=== PATIENT | male | born 1980 | race Caucasian/White ===

== ENCOUNTER → 2016-11-16 | Outpatient (CLI) | payer MEDICARE, OTHER ==
[~2016-11-16] MED LIST: ACULAR10 ML OD; ALPRAZOLAM PO; AMOXICILLIN875 MG PO; ATENOLOL PO; CLARITIN10 M3; FLONASE 0.05% N16 G1; I PRIN PO; LAMICTAL ODT100 MG PO; LAMICTAL PO; LAMICTAL100 MG PO; LATUDA20 MG; LEXAPRO PO; MINIPRESS5 MG; MINOCIN50 M1 PO; MULTI VITAMIN1 EACH PO; MULTI-DAY VITA1 EACH; POLYTRIM EYE DR10 ML OD; XANAX PO; XANAX0.5 MG PO; XANAX1 MG PO; ZOFRAN ODT4 MG/UDTAB SL; [UNRECOGNIZED DRUG - OTHER] PO
--- NOTE | ~2016-11-16 | EKG ---
PATIENT: DAVID DURAN UNIT #: [id number] Ventricular Rate: 78 BPM Atrial Rate: 78 BPM P-R Interval: 132 ms QRS Duration: 84 ms Q-T Interval: 360 ms QTC Calculation(Bezet): 410 ms P Windsor: 67 degrees Calculated R Windsor: 74 degrees Calculated T Windsor: 51 degrees Diagnosis Line: Normal sinus rhythm Diagnosis Line: Normal ECG Diagnosis Line: When compared with ECG of 17-JUL-2015 13:00, Diagnosis Line: T wave amplitude has increased in Anterior leads Diagnosis Line: Confirmed by NADINE LOYOLA MD ([id number]) on Diagnosis Line: 11/16/2016 9:36:30 PM INTERPRETING MD: MIGUEL
--- NOTE | ~2016-11-16 | CO ---
Unit #: [id number] #: [id number] Patient: DAVID DURAN [id number] [address] [place], [place] [address] [id number] O MR#: [id number] NAME: DAVID DURAN ROOM: Age: 35 Sex: M Admission Date: 11/16/2016 : 1980 Attending Physician: Moose Steinberg M.D. Primary Care Physician: No Primary Care Physician Consultation Date: 11/16/2016 CONSULTATION REPORT REASON FOR CONSULTATION Preoperative evaluation prior to ECT procedure scheduled by Dr. Moose Steinberg for 11/20/16. HISTORY OF PRESENT ILLNESS The patient is a 35-year-old male who presents to preprocedural screening for the reasons indicated above. He has no complaints at the time of this interview today. He denies chest pain, shortness of breath, arm, neck, jaw pain or pressure. He denies lightheadedness, dizziness, history of myocardial infarction and congestive heart failure, kidney disease or diabetes. He does have a history of paroxysmal atrial fibrillation and has intermittent palpitations but has undergone a stress test which he reports is normal. He states his palpitations are typically directly related to his level of anxiety. He denies homicidal and suicidal ideation at the time of this interview. He has been evaluated by Dr. Steinberg and scheduled for the above-referenced procedure. PAST MEDICAL HISTORY 1. Depression. 2. Bipolar disorder. 3. PTSD. 4. Anxiety. 5. History of suicide attempt. 6. History of traumatic brain injury x2 with spacial, cognitive and memory impairment. 7. Possible family history of malignant hyperthermia. 8. History of postoperative nausea and vomiting. 9. Latex allergy. 10. History of mitral valve prolapse, paroxysmal atrial fibrillation with palpitations, status post normal stress test. 11. Agoraphobia. 12. History of esophageal rupture. 13. History of thyroid nodule. 14. History of Meniere disease and history of vertigo. 15. Chronic neck and back pain. 16. Tuberculosis at [age] years of age. 17. HPV. PAST SURGICAL HISTORY 1. Tonsillectomy. 2. Esophageal rupture repair. 3. Hemorrhoidectomy. 4. Right fourth finger nerve/tendon repair. Unit #: [id number] #: [id number] Patient: DAVID DURAN 5. Hernia repair. ANESTHESIA Patient states that he and his mother both experience severe nausea and vomiting after general anesthesia. He also comments that his grandmother had very rigid muscles after surgery and is concerned regarding malignant hyperthermia. ALLERGIES 1. Latex allergy. Latex causes rash. 2. Codeine causes skin to crawl. 3. Seroquel causes him to feel like he is completely out of his head. CURRENT MEDICATIONS 1. Lamictal 100 mg p.o. b.i.d. 2. Xanax 1 mg p.o. t.i.d. p.r.n. anxiety. 3. Minipress 5 mg p.o. q.h.s. 4. Multivitamin one p.o. daily. 5. Claritin 10 mg p.o. daily. 6. Ibuprofen 400 mg p.o. q.4 h. p.r.n. headache. SOCIAL HISTORY Occasionally consumes alcohol and takes two tokes of marijuana every two weeks, denies tobacco use. FAMILY HISTORY Per review of Dr. Steinberg's office note he lives with his partner. REVIEW OF SYSTEMS A 10-point review of systems is conducted and otherwise negative except as indicated under history of present illness above. PHYSICAL EXAMINATION GENERAL: A 35-year-old male, awake, alert, in no acute distress. VITAL SIGNS: Temperature 97.3. Heart rate 88. Respiratory rate 16. Blood pressure 123/74. Oxygen saturation 99% on room air. HEENT: Normocephalic and atraumatic. Sclerae anicteric. No discharge from eyes, ears or nares. LYMPH: No preauricular, postauricular, tonsillar, submental anterior or posterior cervical adenopathy. ENDOCRINE: No thyromegaly, thyroid nodules or tenderness. RESPIRATORY: Clear to auscultation all cid bilaterally without wheezes, rhonchi or rales. CARDIOVASCULAR: S1 and S2, regular rate and rhythm, without murmur or rub. GI: Bowel sounds positive x4, soft, nontender, nondistended. EXTREMITIES: No edema, cyanosis or clubbing. MUSCULOSKELETAL: Strength 5/5 all extremities bilaterally with flexion and extension. NEUROLOGIC: Alert and oriented x3. Speech clear. Cranial nerves II-XII grossly intact. DIAGNOSTIC STUDIES LABORATORY: WBC 4.7, hemoglobin 15.0, hematocrit 44.9, platelet count 219,000. Sodium 138, potassium 4.1, chloride 104, CO2 25, glucose 102, BUN 14, creatinine 1.0, calcium 9.1, AST 20, ALT 21, alkaline phosphatase 55, total bilirubin 0.4, total protein 7.7, albumin 4.7. TSH 1.05. Unit #: [id number] #: [id number] Patient: DAVID DURAN Urinalysis negative. CARDIOVASCULAR: Twelve-lead EKG preliminary report: Normal sinus rhythm, normal EKG. Confirmed report pending at this time. IMPRESSION 1. The patient presents to preprocedural screening for medical evaluation prior to ECT on 11/20/2016. The patient's Stanley Revised Cardiac Risk Index is equal to 0.4%. This has been discussed in detail with the patient and he wishes to proceed with the ECT as scheduled at this time. 2. Depression/bipolar disorder, post traumatic stress disorder, anxiety. All medication and psychiatric management per Dr. Steinberg. 3. History of suicide attempt. 4. Traumatic brain injury with history of spacial, cognitive and memory impairment. 5. Possible family history of malignant hyperthermia. 6. Latex allergy. 7. History of mitral valve prolapse, paroxysmal atrial fibrillation, palpitations, status post normal stress test. 8. Agoraphobia. 9. History of esophageal rupture. 10. History or thyroid nodule. 11. History of Meniere disease with vertigo. 12. History of chronic neck and shoulder pain. 13. History of human papillomavirus. 14. History of tuberculosis at [age] years of age. Thank you for allowing us to participate in the care of this patient. Perioperative medication and other order management will be per Dr. Steinberg. Dictated by... Imelda Millard A.P.R.N. for Rika So/erna TD: 11/16/2016 17:51 JOB #: [id number] CONSULTATION REPORT Page 1 of 1 X Imelda Millard SKEIN TIER X CONSULTATION REPORT
[2016-11-16 10:43] LABS: HEMATOCRIT 44.9 % (38.0-50.0); MEAN CELL VOLUME 91.5 FL (83-96); MEAN CORPUSCULAR HEMOGLOBIN 30.6 PG (28-34); MEAN CORPUSCULAR HGB CONC 33.4 g/dL (30-36); MEAN PLATELET VOLUME 8.7 FL (6.5-11.5); RED BLOOD COUNT 4.91 X10e (3.90-5.60); RED CELL DISTRIBUTION WIDTH 13.9 % (11.0-15.5); URINE APPEARANCE CLEAR; URINE BILIRUBIN NEG (NEG); URINE BLOOD NEG (NEG); URINE COLOR DK YELLOW; URINE GLUCOSE NEG (NEG); URINE KETONE TRACE (NEG); URINE LEUKOCYTE ESTERASE NEG (NEG); URINE NITRATE NEG (NEG); URINE PROTEIN NEG (NEG); URINE SPECIFIC GRAVITY 1.028 (1.003-1.035); WHITE BLOOD COUNT 4.7 X10e3 (4.0-10.5)
[2016-11-16 11:06] LABS: ALBUMIN SERUM 4.7 g/dL (3.5-5.0); BILIRUBIN,TOTAL 0.4 mg/dL (0.2-2.0); CALCIUM SERUM 9.1 mg/dL (8.4-10.2); GLOM FILT RATE Estimated 97.8 mL/min (>60); POTASSIUM 4.1 mmol/L (3.5-5.1); PROTEIN TOTAL SERUM 7.7 g/dL (6.0-8.3)
== END | disposition home or self-care (01) ==
LOC: CAMB 10:13
PROVIDERS: Psychiatry & Neurology Psychiatry
DX: Z01.818 Encounter for other preprocedural examination (principal); F41.8 Other specified anxiety disorders; F31.9 Bipolar disorder, unspecified; F40.00 Agoraphobia, unspecified; Z91.040 Latex allergy status; Z86.11 Personal history of tuberculosis; Z87.820 Personal history of traumatic brain injury; Z87.19 Personal history of other diseases of the digestive system; Z86.39 Personal history of other endocrine, nutritional and metabolic disease; Z90.89 Acquired absence of other organs; Z98.890 Other specified postprocedural states; Z88.5 Allergy status to narcotic agent
CPT/HCPCS: 36415; 80053; 81003; 84443; 85027; 93005

== ENCOUNTER → 2016-11-20 | Day surgery (SDC) | payer MEDICARE, OTHER ==
--- NOTE | ~2016-11-20 | ECT ---
Unit #: [id number] #: [id number] Patient: DAVID DURAN [id number] [address] [address] [id number] O MR#: [id number] NAME: DAVID DURAN ROOM: Age: 35 Sex: M Admission Date: 11/20/2016 : 1980 Discharge Date: Attending Physician: Moose Steinberg M.D. Primary Care Physician: Primary Care Physician No ECT NOTE DATE OF TREATMENT 11/20/2016 TREATMENT NUMBER One. TREATMENT MODALITY Unilateral ECT ANESTHESIA Glycopyrrolate: 0.2 mg Brevital: 180 mg Succinylcholine: 120 mg TREATMENT PARAMETERS Charge: 72 millicoulombs Pulse Width: 1.0 milliseconds Frequency: 30 Hertz Duration: 1.5 seconds Current: 180 milliamps TREATMENT DELIVERED Energy: 11.3 joules Impedance: 194 ohms Charge: 72 millicoulombs SEIZURE MEASURES OMS: 37 seconds EE seconds COMPLICATIONS None. SUMMARY The patient had a good seizure with OMS and EEG measures. Depression has psychomotor retardation, poor focus and concentration, loss of interest in activities, poor sleep noted. No suicide or homicidal ideation. I will continue with ECT treatments on Sunday. DIFFERENTIAL DIAGNOSES AXIS I: F33.2. AXIS II: Deferred. Unit #: [id number] #: [id number] Patient: DAVID DURAN AXIS III: Nothing acute. Dictated by... Rika Fry/martinez TD: 11/20/2016 13:14 JOB #: [id number] ECT NOTE Page 1 of 1 X Moose Steinberg MD <ELECTRONICALLY SIGNED> 02/26/17 1207 X ECT
== END | disposition home or self-care (01) ==
LOC: CSUR 08:30
DX: F33.2 Major depressive disorder, recurrent severe without psychotic features (principal); I34.1 Nonrheumatic mitral (valve) prolapse; I47.1 Supraventricular tachycardia; Z90.89 Acquired absence of other organs; Z87.440 Personal history of urinary (tract) infections; Z88.6 Allergy status to analgesic agent; Z91.040 Latex allergy status; Z88.8 Allergy status to other drugs, medicaments and biological substances; Z79.899 Other long term (current) drug therapy
CPT/HCPCS: 90870; J0330; J1885; J2405

== ENCOUNTER → 2016-11-22 | Day surgery (SDC) | payer MEDICARE, OTHER ==
--- NOTE | ~2016-11-22 | ECT ---
Unit #: [id number] #: [id number] Patient: DAVID DURAN [id number] [place] [address] [id number] O MR#: [id number] NAME: DAVID DURAN ROOM: Age: 35 Sex: M Admission Date: 11/22/2016 : 1980 Discharge Date: Attending Physician: Moose Steinberg M.D. Primary Care Physician: Primary Care Physician No ECT NOTE DATE OF TREATMENT 11/22/2016 TREATMENT NUMBER 2 TREATMENT MODALITY Unilateral ECT. ANESTHESIA Glycopyrrolate: 0.2 mg. Brevital: 160 mg. Succinylcholine: 120 mg. TREATMENT PARAMETERS Charge: 288 millicoulombs Pulse Width: 1.0 milliseconds Frequency: 40 Hertz Duration: 4.5 seconds Current: 800 milliamps TREATMENT DELIVERED Energy: 45.2 joules Impedance: 190 ohms Charge: 288 millicoulombs SEIZURE MEASURES OMS: 79 seconds EE seconds COMPLICATIONS None. SUMMARY The patient had a good seizure with OMS and EEG measures on his second stimulus for his ECT treatment. He did have some muscle soreness and nausea from his first ECT. We have given him Toradol and some Zofran. We will just kind of watch and monitor those symptoms and treat as appropriate. He will be back on Sunday for his next ECT. DIFFERENTIAL DIAGNOSES AXIS I: F33.2 AXIS II: Deferred. Unit #: [id number] #: [id number] Patient: DAVID DURAN AXIS III: Nothing acute. Dictated by... Moose Steinberg M.D. JOON/leonela TD: 11/22/2016 12:01 JOB #: [id number] ECT NOTE Page 1 of 1 X Moose Steinberg MD <ELECTRONICALLY SIGNED> 02/26/17 1207 X ECT
== END | disposition home or self-care (01) ==
LOC: CSUR 08:36
DX: F33.2 Major depressive disorder, recurrent severe without psychotic features (principal); E04.1 Nontoxic single thyroid nodule; I34.1 Nonrheumatic mitral (valve) prolapse; I47.1 Supraventricular tachycardia; G47.30 Sleep apnea, unspecified; Z79.1 Long term (current) use of non-steroidal anti-inflammatories (NSAID); Z79.899 Other long term (current) drug therapy; M54.9 Dorsalgia, unspecified; M54.2 Cervicalgia; F41.9 Anxiety disorder, unspecified; H81.09 Meniere's disease, unspecified ear; Z87.898 Personal history of other specified conditions; Z87.440 Personal history of urinary (tract) infections; Z88.5 Allergy status to narcotic agent; Z88.8 Allergy status to other drugs, medicaments and biological substances; Z91.040 Latex allergy status
CPT/HCPCS: 90870; J1885; J2405

== ENCOUNTER → 2016-11-24 | Day surgery (SDC) | payer MEDICARE, OTHER ==
--- NOTE | ~2016-11-24 | ECT ---
Unit #: [id number] #: [id number] Patient: DAVID DURAN [id number] [place] [address] [id number] O MR#: [id number] NAME: DAVID DURAN ROOM: Age: 35 Sex: M Admission Date: 11/24/2016 : 1980 Discharge Date: Attending Physician: Moose Steinberg M.D. Primary Care Physician: Primary Care Physician No ECT NOTE DATE OF TREATMENT 11/24/2016 TREATMENT NUMBER 3 TREATMENT MODALITY Unilateral ECT. ANESTHESIA Glycopyrrolate: 0.2 mg. Brevital: 160 mg. Succinylcholine: 120 mg. TREATMENT PARAMETERS Charge: 288 millicoulombs Pulse Width: 1.0 milliseconds Frequency: 40 Hertz Duration: 4.5 seconds Current: 800 milliamps TREATMENT DELIVERED Energy: 44.3 joules Impedance: 186 ohms Charge: 288 millicoulombs SEIZURE MEASURES OMS: 45 seconds EE seconds COMPLICATIONS None. SUMMARY The patient had a good seizure with OMS and EEG measures. Depression seems to be getting a little bit better. We do still have some psychomotor retardation, poor focus and concentration, loss of interest in activities, subjective feeling of depression. I will continue his treatments on Sunday. DIFFERENTIAL DIAGNOSES AXIS I: F33.2. AXIS II: Deferred. Unit #: [id number] #: [id number] Patient: DAVID DURAN AXIS III: Nothing acute. Dictated by... Moose Steinberg M.D. JOON/leonela TD: 11/24/2016 11:27 JOB #: [id number] ECT NOTE Page 1 of 1 X Moose Steinberg MD <ELECTRONICALLY SIGNED> 02/26/17 1207 X ECT
== END | disposition home or self-care (01) ==
LOC: CSUR 07:44
DX: F33.2 Major depressive disorder, recurrent severe without psychotic features (principal); F41.9 Anxiety disorder, unspecified; Z87.440 Personal history of urinary (tract) infections; Z88.5 Allergy status to narcotic agent; Z88.8 Allergy status to other drugs, medicaments and biological substances; Z79.899 Other long term (current) drug therapy; Z91.040 Latex allergy status; Z98.890 Other specified postprocedural states
CPT/HCPCS: 90870; J0330; J1885; J2405

== ENCOUNTER → 2016-11-27 | Day surgery (SDC) | payer MEDICARE, OTHER ==
--- NOTE | ~2016-11-27 | ECT ---
Unit #: [id number] #: [id number] Patient: DAVID DURAN [id number] [address] [address] [id number] O MR#: [id number] NAME: DAVID DURAN ROOM: Age: 35 Sex: M Admission Date: 11/27/2016 : 1980 Discharge Date: Attending Physician: Moose Steinberg M.D. Primary Care Physician: Primary Care Physician No ECT NOTE DATE OF TREATMENT 11/27/2016 TREATMENT NUMBER 4 TREATMENT MODALITY Unilateral ECT. ANESTHESIA Glycopyrrolate: 0.2 mg. Brevital: 160 mg. Succinylcholine: 120 mg. TREATMENT PARAMETERS Charge: 288 millicoulombs Pulse Width: 1.0 milliseconds Frequency: 40 Hertz Duration: 4.5 seconds Current: 800 milliamps TREATMENT DELIVERED Energy: 41.7 joules Impedance: 177 ohms Charge: 288 millicoulombs SEIZURE MEASURES OMS: 31 seconds EE seconds COMPLICATIONS None. SUMMARY The patient had a good seizure with OMS and EEG measures. No real change noted over the weekend. He continues to have psychomotor retardation, poor focus, and concentration, loss of interest in activities, depressed mood. Overall no suicidal or homicidal ideation is noted. I will continue with ECT treatments on Sunday. DIFFERENTIAL DIAGNOSES AXIS I: F33.2 AXIS II: Deferred. Unit #: [id number] #: [id number] Patient: DAVID DURAN AXIS III: Nothing acute. Dictated by... Moose Steinberg M.D. JOON/leonela TD: 11/27/2016 15:01 JOB #: [id number] ECT NOTE Page 1 of 1 X Moose Steinberg MD <ELECTRONICALLY SIGNED> 02/26/17 1207 X ECT
== END | disposition home or self-care (01) ==
LOC: CSUR 07:16
DX: F33.2 Major depressive disorder, recurrent severe without psychotic features (principal); H81.09 Meniere's disease, unspecified ear; G47.30 Sleep apnea, unspecified; E04.1 Nontoxic single thyroid nodule; G89.29 Other chronic pain; M54.9 Dorsalgia, unspecified; M54.2 Cervicalgia; I34.1 Nonrheumatic mitral (valve) prolapse; I47.1 Supraventricular tachycardia; Z79.899 Other long term (current) drug therapy; F12.90 Cannabis use, unspecified, uncomplicated; Z87.440 Personal history of urinary (tract) infections; Z87.898 Personal history of other specified conditions; Z88.5 Allergy status to narcotic agent; Z88.8 Allergy status to other drugs, medicaments and biological substances; Z91.040 Latex allergy status
CPT/HCPCS: 90870; J0330; J1885; J2405

== ENCOUNTER → 2016-11-29 | Day surgery (SDC) | payer MEDICARE, OTHER ==
--- NOTE | ~2016-11-29 | ECT ---
Unit #: [id number] #: [id number] Patient: DAVID DURAN [id number] [place] [address] [id number] O MR#: [id number] NAME: DAVID DURAN ROOM: Age: 35 Sex: M Admission Date: 11/29/2016 : 1980 Discharge Date: Attending Physician: Moose Steinberg M.D. Primary Care Physician: Primary Care Physician No ECT NOTE DATE OF TREATMENT 11/29/2016 TREATMENT NUMBER Five TREATMENT MODALITY Unilateral ECT ANESTHESIA Glycopyrrolate: 0.2 mg Brevital: 160 mg Succinylcholine: 120 mg TREATMENT PARAMETERS Charge: 288 millicoulombs Pulse Width: 1.0 milliseconds Frequency: 40 Hertz Duration: 4.5 seconds Current: 800 milliamps TREATMENT DELIVERED Energy: 43.5 joules Impedance: 183 ohms Charge: 288 millicoulombs SEIZURE MEASURES OMS: 40 seconds EE seconds COMPLICATIONS None. SUMMARY The patient had a good seizure with both his OMS and EEG measures. Depression has not really changed much since we started her ECTs. He continues to have some psychomotor retardation, poor focus and concentration, loss of interest in activities. No suicidal or homicidal ideation is noted today and his affect is fluctuating rather wildly from day-to-day. I will continue his ECT treatments on Sunday. DIFFERENTIAL DIAGNOSES AXIS I: F33.2. Unit #: [id number] #: [id number] Patient: DAVID DURAN AXIS II: Deferred. AXIS III: Nothing acute. AXIS IV: AXIS V: Dictated by... Moose Steinberg M.D. JOON/kiana TD: 11/29/2016 09:50 JOB #: [id number] ECT NOTE Page 1 of 1 X Moose Steinberg MD <ELECTRONICALLY SIGNED> 02/26/17 1207 X ECT
== END | disposition home or self-care (01) ==
LOC: CSUR 07:10
DX: F33.2 Major depressive disorder, recurrent severe without psychotic features (principal); G89.29 Other chronic pain; M54.9 Dorsalgia, unspecified; M54.2 Cervicalgia; Z87.440 Personal history of urinary (tract) infections; Z87.19 Personal history of other diseases of the digestive system; Z88.5 Allergy status to narcotic agent; Z88.8 Allergy status to other drugs, medicaments and biological substances; Z91.040 Latex allergy status; Z79.1 Long term (current) use of non-steroidal anti-inflammatories (NSAID); Z79.899 Other long term (current) drug therapy; Z90.89 Acquired absence of other organs; Z98.890 Other specified postprocedural states
CPT/HCPCS: 90870; J1885; J2405

== ENCOUNTER → 2016-12-01 | Day surgery (SDC) | payer MEDICARE, OTHER ==
--- NOTE | ~2016-12-01 | ECT ---
Unit #: [id number] #: [id number] Patient: DAVID DURAN [id number] [place] [address] [id number] O MR#: [id number] NAME: DAVID DURAN ROOM: Age: 35 Sex: M Admission Date: 12/01/2016 : 1980 Discharge Date: Attending Physician: Moose Steinberg M.D. Primary Care Physician: Primary Care Physician No ECT NOTE DATE OF TREATMENT 12/01/2016 TREATMENT NUMBER 6 TREATMENT MODALITY Unilateral ECT. ANESTHESIA Glycopyrrolate: 0.2 mg. Brevital: 160 mg. Succinylcholine: 120 mg. TREATMENT PARAMETERS Charge: 400 millicoulombs Pulse Width: 1.0 milliseconds Frequency: 50 Hertz Duration: 5 seconds Current: 800 milliamps TREATMENT DELIVERED Energy: 61.8 joules Impedance: 185 ohms Charge: 400 millicoulombs SEIZURE MEASURES OMS: 70 seconds EE seconds COMPLICATIONS None. SUMMARY The patient had a good seizure with both OMS and EEG measures. Depression has really shown a lot of improvement since we started the ECT. He still has psychomotor retardation, poor focus and concentration, loss of interest in activities, decreased appetite, feeling of guilt. No suicidal or homicidal ideation has been noted. We will increase his ECT energies and continue him on his ECT treatment on Sunday. DIFFERENTIAL DIAGNOSES AXIS I: F33.2 Unit #: [id number] #: [id number] Patient: DAVID DURAN AXIS II: F60.9. AXIS III: Nothing acute. Dictated by... Moose Steinberg M.D. JOON/leonela TD: 12/01/2016 09:53 JOB #: [id number] ECT NOTE Page 1 of 1 X Moose Steinberg MD <ELECTRONICALLY SIGNED> 02/26/17 1207 X ECT
== END | disposition home or self-care (01) ==
LOC: CSUR 07:21
DX: F33.2 Major depressive disorder, recurrent severe without psychotic features (principal); F60.9 Personality disorder, unspecified; F41.9 Anxiety disorder, unspecified; H81.09 Meniere's disease, unspecified ear; E04.1 Nontoxic single thyroid nodule; I34.1 Nonrheumatic mitral (valve) prolapse; I47.1 Supraventricular tachycardia; G89.29 Other chronic pain; M54.9 Dorsalgia, unspecified; M54.2 Cervicalgia; Z79.899 Other long term (current) drug therapy; Z79.1 Long term (current) use of non-steroidal anti-inflammatories (NSAID); Z87.440 Personal history of urinary (tract) infections; Z88.5 Allergy status to narcotic agent; Z88.8 Allergy status to other drugs, medicaments and biological substances; Z91.040 Latex allergy status
CPT/HCPCS: 90870; J0330; J1885; J2405

== ENCOUNTER → 2016-12-04 | Day surgery (SDC) | payer MEDICARE, OTHER ==
--- NOTE | ~2016-12-04 | ECT ---
Unit #: [id number] #: [id number] Patient: DAVID DURAN [id number] [place] [address] [id number] O MR#: [id number] NAME: DAVID DURAN ROOM: Age: 35 Sex: M Admission Date: 12/04/2016 : 1980 Discharge Date: Attending Physician: Moose Steinberg M.D. Primary Care Physician: Primary Care Physician No ECT NOTE DATE OF TREATMENT 12/04/2016 TREATMENT NUMBER Seven TREATMENT MODALITY Unilateral ECT ANESTHESIA Glycopyrrolate: 0.2 mg Brevital: 160 mg Succinylcholine: 100 mg TREATMENT PARAMETERS Charge: 480 millicoulombs Pulse Width: 1.0 milliseconds Frequency: 50 Hertz Duration: 6 seconds Current: 800 milliamps TREATMENT DELIVERED Energy: 75.7 joules Impedance: 190 ohms Charge: 480 millicoulombs SEIZURE MEASURES OMS: 32 seconds EE seconds COMPLICATIONS None SUMMARY The patient had a good seizure with both OMS and EEG measures. Depression hasn't really shown a lot of change. I have increased his energy today for his seventh ECT treatment and we will just continue to watch and continue his ECTs. DIFFERENTIAL DIAGNOSES AXIS I: F33.2. AXIS II: F60.9. AXIS III: Nothing acute. Unit #: [id number] #: [id number] Patient: DAVID DURAN AXIS IV: AXIS V: Dictated by... Rika Fry/kiana TD: 12/05/2016 05:56 JOB #: [id number] ECT NOTE Page 1 of 1 X Moose Steinberg MD <ELECTRONICALLY SIGNED> 02/26/17 1207 X ECT
== END | disposition home or self-care (01) ==
LOC: CSUR 07:28
DX: F33.2 Major depressive disorder, recurrent severe without psychotic features (principal); F60.9 Personality disorder, unspecified; F41.9 Anxiety disorder, unspecified; I34.1 Nonrheumatic mitral (valve) prolapse; E04.1 Nontoxic single thyroid nodule; I47.1 Supraventricular tachycardia; M54.9 Dorsalgia, unspecified; M54.2 Cervicalgia; Z79.1 Long term (current) use of non-steroidal anti-inflammatories (NSAID); Z87.440 Personal history of urinary (tract) infections; Z87.820 Personal history of traumatic brain injury; Z98.890 Other specified postprocedural states; Z88.8 Allergy status to other drugs, medicaments and biological substances; Z91.040 Latex allergy status; Z88.5 Allergy status to narcotic agent
CPT/HCPCS: 90870; J0330; J1885; J2405; J3010

== ENCOUNTER → 2016-12-06 | Day surgery (SDC) | payer MEDICARE, OTHER ==
--- NOTE | ~2016-12-06 | ECT ---
Unit #: [id number] #: [id number] Patient: DAVID DURAN [id number] [address] [address] [id number] O MR#: [id number] NAME: DAVID DURAN ROOM: Age: 35 Sex: M Admission Date: 12/06/2016 : 1980 Discharge Date: Attending Physician: Moose Steinberg M.D. Primary Care Physician: Primary Care Physician No ECT NOTE DATE OF TREATMENT 12/06/2016 TREATMENT NUMBER Eight TREATMENT MODALITY Bilateral ECT ANESTHESIA Glycopyrrolate: 0.2 mg Brevital: 150 mg Succinylcholine: 100 mg TREATMENT PARAMETERS Charge: 576 millicoulombs Pulse Width: 1.0 milliseconds Frequency: 60 Hertz Duration: 6 seconds Current: 800 milliamps TREATMENT DELIVERED Energy: 63.4 joules Impedance: 133 ohms Charge: 576 millicoulombs SEIZURE MEASURES OMS: 28 seconds EE seconds COMPLICATIONS None. SUMMARY The patient has not been showing much response from his unilateral ECT approach so I have changed him over to bilateral ECT. We will continue the rest of his ECTs at bilateral approach with maximal energy and see if we can get him to go into remission. We are getting a good seizure duration with good seizure energy so I feel that we are sufficiently above the seizure threshold to give him a therapeutic treatment with this bilateral approach so we will just continue it this way and see how he does. Unit #: [id number] #: [id number] Patient: DAVID DURAN DIFFERENTIAL DIAGNOSES AXIS I: F33.2. AXIS II: F60.9. AXIS III: Nothing acute. AXIS IV: AXIS V: Dictated by... Moose Steinberg M.D. JOON/kiana TD: 12/06/2016 11:49 JOB #: [id number] ECT NOTE Page 1 of 1 X Moose Steinberg MD <ELECTRONICALLY SIGNED> 02/26/17 1207 X ECT
== END | disposition home or self-care (01) ==
LOC: CSUR 07:50
DX: F33.2 Major depressive disorder, recurrent severe without psychotic features (principal); F60.9 Personality disorder, unspecified; I34.1 Nonrheumatic mitral (valve) prolapse; I47.1 Supraventricular tachycardia; Z90.89 Acquired absence of other organs; Z87.440 Personal history of urinary (tract) infections; Z88.6 Allergy status to analgesic agent; Z91.040 Latex allergy status
CPT/HCPCS: 90870; J0330; J1885; J2405

== ENCOUNTER → 2016-12-11 | Day surgery (SDC) | payer MEDICARE, OTHER ==
--- NOTE | ~2016-12-11 | ECT ---
Unit #: [id number] #: [id number] Patient: DAVID DURAN [id number] [address] [address] [id number] O MR#: [id number] NAME: DAVID DURAN ROOM: Age: 35 Sex: M Admission Date: 12/11/2016 : 1980 Discharge Date: Attending Physician: Moose Steinberg M.D. Primary Care Physician: No Primary Care Physician ECT NOTE DATE OF TREATMENT 12/11/2016 TREATMENT NUMBER 9 today. TREATMENT MODALITY Bilateral ECT. ANESTHESIA Glycopyrrolate: 0.2 mg. Brevital: 150 mg. Succinylcholine: 100 mg. TREATMENT PARAMETERS Charge: 576 millicoulombs Pulse Width: 1.9 milliseconds Frequency: 60 Hertz Duration: 6 seconds Current: 800 milliamps TREATMENT DELIVERED Energy: 67.3 joules Impedance: 122 ohms Charge: 576 millicoulombs SEIZURE MEASURES OMS: 32 seconds EE seconds COMPLICATIONS None. SUMMARY The patient is doing pretty well with his bilateral approach to ECT. 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 Depression is improving. I will continue his ECT treatments on Sunday. DIFFERENTIAL DIAGNOSES AXIS I: F33.2. AXIS II: F60.9. Unit #: [id number] #: [id number] Patient: DAVID DURAN AXIS III: Nothing acute. Dictated by... Moose Steinberg M.D. JOON/raul TD: 12/12/2016 10:02 JOB #: [id number] ECT NOTE Page 1 of 1 X Moose Steinberg MD <ELECTRONICALLY SIGNED> 02/26/17 1207 X ECT
== END | disposition home or self-care (01) ==
LOC: CSUR 08:19
DX: F33.2 Major depressive disorder, recurrent severe without psychotic features (principal); F60.9 Personality disorder, unspecified; F41.9 Anxiety disorder, unspecified; I34.1 Nonrheumatic mitral (valve) prolapse; E04.1 Nontoxic single thyroid nodule; G89.29 Other chronic pain; M54.9 Dorsalgia, unspecified; M54.2 Cervicalgia; Z87.820 Personal history of traumatic brain injury; Z88.5 Allergy status to narcotic agent; Z87.440 Personal history of urinary (tract) infections; Z98.890 Other specified postprocedural states; Z91.040 Latex allergy status; Z88.8 Allergy status to other drugs, medicaments and biological substances
CPT/HCPCS: 90870; J0330; J1885; J2405

== ENCOUNTER → 2016-12-15 | Day surgery (SDC) | payer MEDICARE, OTHER ==
--- NOTE | ~2016-12-15 | ECT ---
Unit #: [id number] #: [id number] Patient: DAVID DURAN [id number] [address] [address] [id number] O MR#: [id number] NAME: DAVID DURAN ROOM: Age: 35 Sex: M Admission Date: 12/15/2016 : 1980 Discharge Date: Attending Physician: Moose Steinberg M.D. Primary Care Physician: Primary Care Physician No ECT NOTE DATE OF TREATMENT 12/15/2016 TREATMENT NUMBER 10 TREATMENT MODALITY Bilateral ECT ANESTHESIA Glycopyrrolate: 0.2 mg Brevital: 150 mg Succinylcholine: 100 mg TREATMENT PARAMETERS Charge: 576 millicoulombs Pulse Width: 1.0 milliseconds Frequency: 60 Hertz Duration: 6 seconds Current: 800 milliamps TREATMENT DELIVERED Energy: 62.2 joules Impedance: 130 ohms Charge: 576 millicoulombs SEIZURE MEASURES OMS: 36 seconds EE seconds COMPLICATIONS None. SUMMARY The patient had a good seizure with OMS and EEG measures. Depression does appear to be getting significantly better. He does seem to have a brighter affect. He is not sleeping all that well. He is pretty tired during the day. No other symptoms are noted at this point. I will continue his ECT treatments on Sunday and we will finish his course of treatment on Sunday, treatment number 12. DIFFERENTIAL DIAGNOSES AXIS I: F33.2. AXIS II: Deferred. Unit #: [id number] #: [id number] Patient: DAVID DURAN AXIS III: Nothing acute. Dictated by... Moose Steinberg M.D. JOON/gutierrez TD: 12/15/2016 20:03 JOB #: [id number] ECT NOTE Page 1 of 1 X Moose Steinberg MD <ELECTRONICALLY SIGNED> 02/26/17 1207 X ECT
== END | disposition home or self-care (01) ==
LOC: CSUR 07:36
DX: F33.2 Major depressive disorder, recurrent severe without psychotic features (principal)
CPT/HCPCS: 90870; J0330; J1885; J2405

== ENCOUNTER → 2016-12-18 | Day surgery (SDC) | payer MEDICARE, OTHER ==
--- NOTE | ~2016-12-18 | ECT ---
Unit #: [id number] #: [id number] Patient: DAVID DURAN [id number] [address] [address] [id number] O MR#: [id number] NAME: DAVID DURAN ROOM: Age: 35 Sex: M Admission Date: 12/18/2016 : 1980 Discharge Date: Attending Physician: Moose Steinberg M.D. Primary Care Physician: Primary Care Physician No ECT NOTE DATE OF TREATMENT 12/18/2016 TREATMENT NUMBER 11 maintenance TREATMENT MODALITY Bilateral ECT. ANESTHESIA Glycopyrrolate: 0.2 mg Brevital: 150 mg Succinylcholine: 100 mg TREATMENT PARAMETERS Charge: 576 millicoulombs Pulse Width: 1.0 milliseconds Frequency: 60 Hertz Duration: 6 seconds Current: 800 milliamps TREATMENT DELIVERED Energy: 59.5 joules Impedance: 125 ohms Charge: 576 millicoulombs SEIZURE MEASURES OMS: 36 seconds EE seconds COMPLICATIONS None. SUMMARY Patient had a good seizure with OMS and EEG measures. His depression seems pretty much gone. We will complete his ECT treatments on Sunday, some short-term memory problems have been noted nothing specifically observed on our evaluation with him here. DIFFERENTIAL DIAGNOSIS Pruden I: F33.2. Pruden II: F60.9. Pruden III: Nothing acute. Unit #: [id number] #: [id number] Patient: DAVID DURAN Dictated by... Rika Fry/salas TD: 12/19/2016 04:30 JOB #: [id number] ECT NOTE Page 1 of 1 X Moose Steinberg MD <ELECTRONICALLY SIGNED> 02/26/17 1207 X ECT
== END | disposition home or self-care (01) ==
LOC: CSUR 07:48
DX: F33.2 Major depressive disorder, recurrent severe without psychotic features (principal); G43.909 Migraine, unspecified, not intractable, without status migrainosus; E04.1 Nontoxic single thyroid nodule; I34.1 Nonrheumatic mitral (valve) prolapse; Z87.440 Personal history of urinary (tract) infections; Z79.1 Long term (current) use of non-steroidal anti-inflammatories (NSAID); Z98.890 Other specified postprocedural states; Z88.5 Allergy status to narcotic agent; Z88.8 Allergy status to other drugs, medicaments and biological substances; Z91.040 Latex allergy status
CPT/HCPCS: 90870; J0330; J1885; J2405

== ENCOUNTER → 2016-12-20 | Day surgery (SDC) | payer MEDICARE, OTHER ==
--- NOTE | ~2016-12-20 | ECT ---
Unit #: [id number] #: [id number] Patient: DAVID DURAN [id number] [address] [address] [id number] MR#: [id number] NAME: DAVID DURAN ROOM: Age: 35 Sex: M Admission Date: 12/20/2016 : 1980 Discharge Date: Attending Physician: Moose Steinberg M.D. Primary Care Physician: Primary Care Physician No ECT NOTE DATE OF TREATMENT 12/20/2016 TREATMENT NUMBER 12 MODE Bilateral ECT. ANESTHESIA Glycopyrrolate: 0.2 mg. Brevital: 150 mg. Succinylcholine: 100 mg. TREATMENT PARAMETERS Charge: 576 millicoulombs Pulse Width: 1.0 milliseconds Frequency: 50 Hertz Duration: 6 seconds Current: 800 milliamps TREATMENT DELIVERED Energy: 63.6 joules Impedance: 133 ohms Charge: 576 millicoulombs SEIZURE MEASURES OMS: 23 seconds EE seconds COMPLICATIONS None. SUMMARY The patient had a good seizure with OMS and EEG measures. His depression seems to reach the status of remission. No particular change noted in his personality and behaviors, but his overall mood is improved. Some complaints of short-term memory loss, but no other issues noted. I will conclude his ECT treatments today, and we will follow up with Dr. Freire, his primary psychiatrist. DIFFERENTIAL DIAGNOSES AXIS I: F33.2 Unit #: [id number] #: [id number] Patient: DAVID DURAN AXIS II: Deferred. AXIS III: Nothing acute. Dictated by... Moose Steinberg M.D. JOON/leonela TD: 12/21/2016 10:53 JOB #: [id number] ECT NOTE Page 1 of 1 X Moose Steinberg MD <ELECTRONICALLY SIGNED> 02/26/17 1207 X ECT
== END | disposition home or self-care (01) ==
LOC: CSUR 07:33
DX: F33.2 Major depressive disorder, recurrent severe without psychotic features (principal); G43.909 Migraine, unspecified, not intractable, without status migrainosus; K21.9 Gastro-esophageal reflux disease without esophagitis; Z87.440 Personal history of urinary (tract) infections; Z88.8 Allergy status to other drugs, medicaments and biological substances; Z88.5 Allergy status to narcotic agent; Z91.040 Latex allergy status; Z79.899 Other long term (current) drug therapy; Z95.5 Presence of coronary angioplasty implant and graft; Z98.890 Other specified postprocedural states
CPT/HCPCS: 90870; J0330; J1885; J2405

== ENCOUNTER 2016-12-31 23:49 | Observation (INO) | payer MEDICARE, OTHER ==
--- NOTE | ~2016-12-31 | CO ---
Unit #: [id number] #: [id number] Patient: DAVID GRAHAM [id number] [facility]. [place], [place] [address] [id number] MR#: [id number] NAME: DAVID GRAHAM ROOM: 322 Age: 36 Sex: M Admission Date: 01/01/2017 : 1980 Attending Physician: Deedee Braga M.D. Consultation Date: 01/01/2017 CONSULTATION REPORT REASON FOR CONSULTATION Depression and accidental overdose. HISTORY OF PRESENT ILLNESS Mr. David Graham is a 36-year-old white male, seen in room 322 on 01/01/2017 at [facility]. The patient dressed casually in hospital attire, sitting comfortably in bed, pleasant and cooperative, made good eye contact, able to answer questions appropriately. The patient's significant other was also in the same room. The patient currently denied any suicidal or homicidal ideation. Denied any psychotic symptom. The patient reported that he got confused as he wanted to sleep and took couple of pills of Xanax and then repeated unknowingly as he was confused and having problem with memory since last completed ECT. The patient reports that he was with Dr. Steinberg. Initially, he got 6 unilateral ECT; after that, bilateral ECT 6; after that, he became somewhat manic. The patient also reported it affected his memory, but is getting better, especially short-term memory, which probably cause problems which led to this admission. The patient was admitted with the accidental overdose of Xanax. The patient denied it was a suicide attempt. The patient's significant other also reported that no suicidal ideation or any attempts. PAST PSYCHIATRIC HISTORY Remarkable for history of refractory depression and bipolar disorder. The patient currently followed by outpatient psychiatrist and received ECT treatment [address] Moose Steinberg. No known history of any suicide attempt. MEDICAL HISTORY Unremarkable for any chronic medical illness. MEDICATION HISTORY The patient is on multivitamin, Lamictal, Minipress, and Xanax. FAMILY HISTORY AND SOCIAL HISTORY The patient has a good support system from his significant other. The patient denied any history of abuse. No history of any substance abuse. REVIEW OF SYSTEMS A complete review of systems is unremarkable. MENTAL STATUS EXAMINATION Vital signs; stable. Temperature 98.4, pulse 78, respirations 16, oxygen saturation 100%, blood pressure 100/53, height 5 feet 8 inches, weight 168 Unit #: [id number] #: [id number] Patient: DAVID GRAHAM. General appearance; the patient dressed in hospital attire, sitting comfortably in bed. Attention span and concentration, fair. Speech; regular rate and coherent. Oriented in time, place, and person. Mood and affect were sad, dysphoric, and anxious. Thought process, coherent. Thought content; the patient denied any thoughts of harming self or others or any psychotic symptom. Denied it was a suicide attempt. Recent and remote memory, fair. Language, intact. Having some problem with short-term memory. Fund of knowledge, fair. Insight and judgment, fair to slightly impaired. DIAGNOSES Psychiatric: Major depressive disorder, recurrent, F33.2, severe. Secondary diagnosis: Deferred. Medical diagnosis: None. Stressors: Psychosocial stressor. ASSESSMENT AND PLAN 1. Supportive psychotherapy and psychoeducation provided to the patient. 2. Educated about benefits and side effects of medication and course and prognosis of illness. 3. Advised to follow up with the outpatient psychiatrist. Advised to discontinue Xanax. Please feel free to call if any questions, telephone #[phone]. Dictated by... Rika Tyson/saadia TD: 01/01/2017 23:03 JOB #: [id number] CONSULTATION REPORT Page 1 of 1 X Bj Lozada MD X CONSULTATION REPORT
--- NOTE | ~2016-12-31 | EKG ---
PATIENT: DAVID DURAN UNIT #: [id number] Ventricular Rate: 129 BPM Atrial Rate: 129 BPM P-R Interval: 134 ms QRS Duration: 76 ms Q-T Interval: 300 ms QTC Calculation(Bezet): 439 ms P [place]: 54 degrees Calculated R [place]: 59 degrees Calculated T [place]: 36 degrees Diagnosis Line: Sinus tachycardia Diagnosis Line: Possible Left atrial enlargement Diagnosis Line: Borderline ECG Diagnosis Line: When compared with ECG of 16-NOV-2016 10:51, Diagnosis Line: Vent. rate has increased BY 51 BPM Diagnosis Line: Confirmed by STEPHANIE HERNANDEZ MD ([id number]) on Diagnosis Line: 01/01/2017 3:42:00 PM INTERPRETING MD: MARY MARTINES
--- NOTE | ~2016-12-31 | DS ---
Unit #: [id number] #: [id number] Patient: DAVID DURAN [id number] [facility] [address] [facility]. [place], [place] [address] [id number] MR#: [id number] NAME: DAVID DURAN ROOM: 322 Age: 36 Sex: M Admission Date: 01/01/2017 : 1980 Discharge Date: 01/01/2017 Attending Physician: Deedee Braga M.D. Primary Care Physician: No Primary Care Physician DISCHARGE SUMMARY SHORT STAY SUMMARY REASON FOR ADMISSION Possible suicidal attempt. HISTORY OF PRESENT ILLNESS/HOSPITAL COURSE The patient is a 36-year-old male who was undergoing ECT therapy by Dr. Steinberg as an outpatient here at [facility]. Apparently he was discharged home from his routine therapy session secondary to refractory depression. He states that he became acutely manic, which he was well aware as a side effect. He had difficulty sleeping for approximately five days. He began taking his Xanax 1 mg tablets, three at a time, every 30 minutes until he could actually fall asleep. The third time around, he finally fell asleep. He has sent a text message apparently to his parents. Details are not clear to me but his parents became concerned for possible suicidal ideation. His partner at home also became concerned and, therefore, brought him/took him to [facility] where he was subsequently transferred to [facility]. His routine laboratory studies, chemistry, CBC, blood tox/urine tox were all unremarkable with the exception of benzodiazepines. At this point in time, the patient is currently medically stable. We are awaiting evaluation from Dr. Lozada for further disposition. He states that he has no intent for suicide at the present time. He only wished to go to sleep. His partner, at bedside, confirms story as well. PAST MEDICAL HISTORY 1. Refractory depression. 2. Bipolar. 3. Underlying mental illness and/or generalized anxiety. PAST SURGICAL HISTORY 1. Tonsillectomy. 2. Repair of esophagus in past. SOCIAL HISTORY Social alcohol use, social marijuana use. Currently unemployed. FAMILY HISTORY Positive schizophrenia. REVIEW OF SYSTEMS Please see HPI. Twelve point otherwise negative except for those Unit #: [id number] #: [id number] Patient: DAVID DURAN positives noted in the HPI. PHYSICAL EXAMINATION VITAL SIGNS: Temperature at outside facility 98.5, respiratory rate 16, blood pressure 108/66, heart rate 136. GENERAL APPEARANCE: The patient is alert, oriented x3, in no acute distress. HEAD EXAM: Atraumatic, normocephalic. EAR EXAM: Tympanic membranes do not reveal any erythema or injection. NECK EXAM: Supple. CVS: S1, S2 without murmur. RESPIRATORY: Clear to auscultation bilaterally. GI/ABDOMEN: Nontender, nondistended. EXTREMITIES: Lower extremities have no evidence of any lower extremity edema or calf tenderness. NEUROLOGICAL EXAM: The patient is A and O x4. PSYCHIATRIC EXAM: The patient denies any suicidal ideation at the present time and has appropriate mood and affect. DIAGNOSTIC STUDIES LABORATORY: Laboratory studies at outside facility are unremarkable. CARDIOVASCULAR: EKG did show sinus tachycardia. Currently, heart rate now is stable. CURRENT CLINICAL DIAGNOSIS 1. Refractory depression. 2. Inappropriate use of prescribed benzodiazepines. 3. Possible suicidal ideation. 4. Generalized anxiety. 5. Prior history of seizure disorder. DISCHARGE DISPOSITION To be determined by Dr. Lozada. DISCHARGE MEDICATIONS 1. Multivitamin. 2. Lamictal. 3. Minipress. 4. Xanax. All medications will be determined by psychiatry services after they see and evaluate patient at time of discharge. Dictated by... Deedee Braga M.D. DEE/karma TD: 01/01/2017 10:48 JOB #: [id number] Unit #: [id number] #: [id number] Patient: DAVID DURAN DISCHARGE SUMMARY Page 1 of 1 X Deedee Braga MD X DISCHARGE SUMMARY
[2017-01-01 00:30] LABS: BASOPHIL% 0.4 % (0-2.5); EOSINOPHIL# 0.1 X10e3 (0-0.7); EOSINOPHIL% 1.7 % (0.0-7.0); HEMOGLOBIN 15.5 gm/dL (13.0-16.0); LYMPHOCYTE# 2.3 X10e3 (1.0-3.5); LYMPHOCYTE% 42.4 % (17.0-45.0); MEAN CELL VOLUME 91.5 FL (83-96); MEAN CORPUSCULAR HEMOGLOBIN 30.8 PG (28-34); MEAN CORPUSCULAR HGB CONC 33.6 g/dL (30-36); MEAN PLATELET VOLUME 8.4 FL (6.5-11.5); MONOCYTE# 0.4 X10e3 (0-1.0); MONOCYTE% 7.6 % (3.0-12.0); NEUTROPHIL# 2.6 X10e3 (1.5-7.1); NEUTROPHIL% 47.9 % (40-75); PLATELET COUNT 234 X10e3 (140-420); RED BLOOD COUNT 5.03 X10e (3.90-5.60); RED CELL DISTRIBUTION WIDTH 13.4 % (11.0-15.5); WHITE BLOOD COUNT 5.5 X10e3 (4.0-10.5)
[2017-01-01 00:35] LABS: DIFF IND NO
[2017-01-01 00:47] LABS: ALBUMIN SERUM 4.5 g/dL (3.5-5.0); ALCOHOL BLOOD 78 mg/dL (0); ALKALINE PHOSPHATASE 57 U/L (32-92); ALT (SGPT) 26 U/L (10-40); AST (SGOT) 22 U/L (10-42); BILIRUBIN,TOTAL 0.2 mg/dL (0.2-2.0); BLOOD UREA NITROGEN 11 mg/dL (9-23); BUN/CREATININE RATIO 12.22; CALCIUM SERUM 9.1 mg/dL (8.4-10.2); CARBON DIOXIDE 24 mmol/L (22-31); CHLORIDE 107 mmol/L (100-111); CREATININE SERUM 0.9 mg/dL (0.6-1.4); GLOM FILT RATE Estimated 110.3 mL/min (>60); GLUCOSE FASTING 89 mg/dL (70-110); POTASSIUM 3.5 mmol/L (3.5-5.1); PROTEIN TOTAL SERUM 7.3 g/dL (6.0-8.3); SALICYLATE <4.0 mg/dL; SODIUM 137 mmol/L (135-145)
[2017-01-01 00:49] LABS: ACETAMINOPHEN <10 ug/mL; BILIRUBIN, DIRECT <0.1 mg/dL (0.0-0.2); BILIRUBIN,INDIRECT 0.1 mg/dL (0.0-0.9)
[2017-01-01 03:51] LABS: URINE SOURCE CLEAN CATCH
[2017-01-01 03:53] LABS: URINE APPEARANCE CLEAR; URINE BILIRUBIN NEG (NEG); URINE BLOOD NEG (NEG); URINE COLOR YELLOW; URINE GLUCOSE NEG (NORM); URINE KETONE NEG (NEG); URINE LEUKOCYTE ESTERASE NEG (NEG); URINE NITRATE NEG (NEG); URINE PH 5.5 (5-8); URINE PROTEIN NEG (NEG); URINE UROBILINOGEN 0.2 MG/DL (NORM)
[2017-01-01 03:54] LABS: MICRO INDICATED? NO
[2017-01-01 04:15] LABS: AMPHETAMINE NEG (NEG); BARBITURATES NEG (NEG); BENZODIAZEPINES POS (NEG); COCAINE NEG (NEG); MARIJUANA NEG (NEG); OPIATES NEG (NEG); TRICYCLIC ANTIDEPRESSANTS NEG (NEG); U METHADONE NEG (NEG)
== END 2017-01-01 11:49 | disposition home or self-care (01) ==
LOC: SED 23:49 → SEDOF 01-01 → SED 01-01 02:11 → SEDOF 01-01 02:11 → C3A PCU 01-01 07:56 → SEDOF 01-01 07:56 → C3A PCU 01-01 08:40
PROVIDERS: Physician Assistant
DX: F33.2 Major depressive disorder, recurrent severe without psychotic features (principal); F41.1 Generalized anxiety disorder; T42.4X1A Poisoning by benzodiazepines, accidental (unintentional), initial encounter; Z86.69 Personal history of other diseases of the nervous system and sense organs; Z81.8 Family history of other mental and behavioral disorders
CPT/HCPCS: 36415; 80048; 80076; 80307; 81003; 85025; 93005; 96360; 99285; G0378; G0480